=== PATIENT | male | born 1955 | race Caucasian/White ===

== ENCOUNTER 2016-11-05 08:31 | Emergency (ER) | payer SELFPAY ==
--- NOTE | 2016-11-07 13:02 | ER ---
ADMIT: 11/05/2016 RM/LOC: ER [facility] MR#: [id number] [place], [place] [id number] DAVIDJAMES HORTON [address] [facility] [address] [place] [address] Emergency Room Report SEX: M AGE: 61 : 1955 DATE: 11/05/2016 HISTORY OF PRESENT ILLNESS: The patient is a 61-year-old male, came to the ER with chief complaint of right lower tooth pain at the incisors. Allegedly, the patient has the pain and dental caries for many months, and he is waiting for an appointment with the dentist. The patient denies any trauma. Denies any fever, drooling, difficulty speaking, or pain in the jaw. Just has pain in the lower incisors. PHYSICAL EXAMINATION: GENERAL: The patient was in no obvious distress, was afebrile, lying in bed quietly. HEAD AND NECK: There is no obvious swelling or erythema. Mouth exam; upper teeth are extracted except for 4 incisors are not extracted. The lower incisors have dental caries. There is mild erythema and mild swelling of the gums, poor oral hygiene. I did not notice any obvious periodontal abscesses. Floor of the mouth is not raised, and there is no submandibular tenderness or swelling. I did not feel any large lymphadenopathy. There rest of the oropharyngeal and oral cavity exam is negative and noncontributory. The rest of the physical examination also is noncontributory. After topically anaesthetizing with benzocaine, about 2 milliliters of Marcaine 0.5% was injected, the left inferior alveolar block was achieved successfully. There were no signs of infection. There is no need for antibiotic therapy at this stage. The patient has appointment with dentist. With a prescription for Langdon 5/325, 12 of them, the patient was discharged to home. Return precautions, and follow up with the dentist as soon as possible. Stephan Eugene MD/ hina JOB #: [id number] CC: Stephan Eugene MD, Attending Physician UNKNOWN, Family Physician
== END 2016-11-05 09:11 | disposition home or self-care (01) ==
LOC: ER 08:31
PROC: 3E0T3BZ Introduction of Anesthetic Agent into Peripheral Nerves and Plexi, Percutaneous Approach (ICD-10-PCS; principal; 2016-11-05)
DX: K02.9 Dental caries, unspecified (principal); F41.9 Anxiety disorder, unspecified; F17.200 Nicotine dependence, unspecified, uncomplicated